=== PATIENT | male | born 1975 ===

== ENCOUNTER 2018-12-07 00:49 | Emergency (ER) | payer SELFPAY ==
--- NOTE | 2018-12-07 01:08 | C.PDOC ---
History Of Present Illness 43 year old male presents with lower back pain for the past few weeks. Patient states the pain worsens when sitting and getting up from sitting position. Denies weakness, numbness, dysuria, hematuria, incontinence or recent injury. Time Seen by Provider: 12/07/18 01:04 Chief Complaint (Nursing): Back Pain History Per: Patient History/Exam Limitations: no limitations Onset/Duration Of Symptoms: Days Current Symptoms Are (Timing): Still Present Quality Of Discomfort: Unable To Describe Previous Symptoms: None Associated Symptoms: None Exacerbating Factor(s): Sitting Recent travel outside of the [place]: No Past Medical History Reviewed: Historical Data, Nursing Documentation, Vital Signs Vital Signs: Last Vital Signs Temp 97.7 F 12/07/18 01:01 Pulse 74 12/07/18 01:01 Resp 16 12/07/18 01:01 BP 126/89 12/07/18 01:01 Pulse Ox 97 12/07/18 01:01 Family History: States: No Known Family Hx - Social History Hx Alcohol Use: No Hx Substance Use: No Review Of Systems Genitourinary: Negative for: Dysuria, Incontinence, Hematuria Musculoskeletal: Positive for: Back Pain Neurological: Negative for: Weakness, Numbness Physical Exam - Physical Exam Appears: Non-toxic Skin: Normal Color, Warm Head: Atraumatic, Normacephalic Eye(s): bilateral: Normal Inspection Back: No CVA Tenderness, No Vertebral Tenderness, No Paraspinal Tenderness Extremity: Normal ROM (x4) Neurological/Psych: Oriented x3, Normal Speech, Normal Motor, Normal Sensation Gait: Steady ED Course And Treatment O2 Sat by Pulse Oximetry: 97 (Room air) Pulse Ox Interpretation: Normal - Other Rad LS spine x-ray X-Ray: Interpreted by Me, Viewed By Me Interpretation: No acute fracture or dislocation. Progress Note: LS spine x-ray ordered, results were negative. Flexeril and motrin administered. Patient is resting comfortably in no acute distress, ambulatory with steady gait, vitals are stable, will discharge home with instructions to follow up with PMD. Disposition Counseled Patient/Family Regarding: Diagnosis, Need For Followup, Rx Given - Disposition Referrals: [facility] [Outside] Disposition: HOME/ ROUTINE Disposition Time: 02:44 Condition: STABLE Additional Instructions: Please follow up with PMD Take medications as directed ' Return to ER if worse Prescriptions: Cyclobenzaprine [Cyclobenzaprine HCl] 10 mg PO HS #10 tab Ibuprofen [Motrin] 600 mg PO Q6H #30 tab Instructions: Low Back Pain (DC) Forms: [employer] (Albanian) Print Language: PORTUGUESE - Clinical Impression Clinical Impression: Low back pain - PA / [employer]PER[employer] / Resident Statement MD/DO has reviewed & agrees with the documentation as recorded. - Scribe Statement The provider has reviewed the documentation as recorded by the Scribliana Diop All medical record entries made by the Desibliana were at my direction and personally dictated by me. I have reviewed the chart and agree that the record accurately reflects my personal performance of the history, physical exam, medical decision making, and the department course for this patient. I have also personally directed, reviewed, and agree with the discharge instructions and disposition.
[2018-12-07 01:09] VITALS: O2SAT 97
[2018-12-07 03:01] VITALS: BP 127/88; PULSE 62; RESP 18; TEMP 98.6
--- NOTE | 2018-12-07 10:13 | RAD ---
Date of service: 12/07/2018 PROCEDURE: Radiographs of the Lumbar Spine. HISTORY: pain COMPARISON: No prior. FINDINGS: BONES: Alignment appears satisfactory. No listhesis. No acute displaced fracture identified. DISC SPACES: Unremarkable. OTHER FINDINGS: None. IMPRESSION: No acute displaced fracture identified.
== END 2018-12-07 02:57 | disposition home or self-care (01) ==
LOC: C.ER 00:49
DX: M54.5 Low back pain (principal)